=== PATIENT | male | born 1990 | race American Indian/Alaskan Native ===

== ENCOUNTER 2017-01-31 00:32 | Emergency (ER) | payer SELFPAY ==
[2017-01-31 01:18] LABS: Anion Gap 18 mmol/L; BUN/Creatinine Ratio 15.71; Blood Urea Nitrogen 11 mg/dL (9-20); Calcium 9.3 mg/dL (8.4-10.2); Carbon Dioxide 26 mmol/L (22-30); Glucose 88 mg/dL (75-100); Potassium 3.8 mmol/L (3.6-5.0); Sodium 139 mmol/L (137-145)
[2017-01-31 01:19] LABS: Basophils % (Auto) 0.9 % (0.0-1.8); Eosinophils % (Auto) 6.3 % (0.0-4.3); Hematocrit 44.3 % (35.5-45.6); Hemoglobin 14.4 gm/dl (11.8-15.2); Mean Corpuscular HGB Conc 33 % (32-34); Mean Corpuscular Hemoglobin 29 pg (28-32); Mean Corpuscular Volume 90 fl (84-94); Platelet Count 251 K/mm3 (140-440); Red Blood Count 4.93 M/mm3 (3.65-5.03); Red Cell Distribution Width 12.5 % (13.2-15.2); White Blood Count 5.5 K/mm3 (4.5-11.0)
--- NOTE | 2017-01-31 07:56 | Emergency Department Report ---
HPI - General Chief Complaint: Syncope Time Seen by Provider: 01/31/17 07:48 - HPI HPI: This is a 26-year-old Afro[place] male who presents to the emergency department from work, via EMS, after he passed out around midnight. He says he was just sitting there on a break with his friend but the friend was showing him some gory pictures of a skateboarding accident and all of a sudden the patient became queasy and things felt hazy. The patient then laid down with his head on a table and appeared to have passed out. While the patient was not necessarily unconscious the entire time, coworker said that he was out of it for about 30 minutes. Patient is currently awake and alert and says he feels back at baseline. He denies any past medical history. He does not have a primary care doctor. No recent travel or sick contacts at home. He denies any alcohol or drug abuse or tobacco abuse. He did not take anything and was not given anything for his symptoms prior to presentation. ED Past Medical Hx - Past Medical History Previous Medical History?: No - Surgical History Past Surgical History?: No - Social History Smoking Status: Never Smoker Substance Use Type: None - Medications Home Medications: Home Medications Medication Instructions Recorded Confirmed Last Taken Type No Known Home Medications [No 01/31/17 01/31/17 Unknown History Reported Home Medications] ED Review of Systems ROS: Stated complaint: PASS OUT Other details as noted in HPI Comment: All other systems reviewed and negative Constitutional: denies: chills, fever Eyes: denies: eye pain, eye discharge, vision change ENT: denies: ear pain, throat pain Respiratory: denies: cough, shortness of breath, wheezing Cardiovascular: syncope. denies: palpitations Gastrointestinal: denies: abdominal pain, nausea, diarrhea Genitourinary: denies: urgency, dysuria Musculoskeletal: denies: back pain, joint swelling, arthralgia Skin: denies: rash, lesions Neurological: denies: headache, numbness Physical Exam - Physical Exam Vital Signs: Vital Signs 01/31/17 00:37 Temperature 97.8 F Pulse Rate 60 Respiratory 18 Rate Blood Pressure 123/76 O2 Sat by Pulse 100 Oximetry Physical Exam: GENERAL: The patient is well-developed well-nourished. HEENT: Normocephalic. Atraumatic. Extraocular motions are intact. Patient has moist mucous membranes. Pupils equal reactive to light bilaterally. No nystagmus. NECK: Supple. Trachea is midline. CHEST/LUNGS: Clear to auscultation. There is no respiratory distress noted. HEART/CARDIOVASCULAR: Regular. There is no tachycardia. There is no gallop rub or murmur. ABDOMEN: Abdomen is soft, nontender. Patient has normal bowel sounds. There is no abdominal distention. SKIN: There is no rash. There is no edema. There is no diaphoresis. NEURO: The patient is awake, alert, and oriented. The patient is cooperative. The patient has no focal neurologic deficits. The patient has normal speech and gait. Cranial nerves II through XII grossly intact. MUSCULOSKELETAL: There is no tenderness or deformity. There is no limitation range of motion. There is no evidence of acute injury. Muscle strength 5 out of 5 for upper and lower extremity bilaterally. Cap refill less than 2 seconds. ED Course Vital Signs 01/31/17 00:37 Temperature 97.8 F Pulse Rate 60 Respiratory 18 Rate Blood Pressure 123/76 O2 Sat by Pulse 100 Oximetry ED Medical Decision Making - Lab Data Result diagrams: 01/31/17 00:50 01/31/17 00:50 - EKG Data -: EKG Interpreted by Sd EKG shows normal: sinus rhythm, axis, intervals, QRS complexes, ST-T waves Rate: bradycardia (57 bpm) - EKG Data When compared to previous EKG there are: previous EKG unavailable Interpretation: normal EKG ( with mild bradycardia) - Medical Decision Making 26-year-old male presents after having a syncopal episode at work. It allegedly was prolonged loss of consciousness but patient may not have been unconscious as much as he was days. Differential included syncope versus seizure versus alcohol intoxication. EKG does not show any signs of ST elevation VT, ischemia or dysrhythmia. Labs are unremarkable including negative blood alcohol level. There is no signs of infection, electrolyte abnormalities, renal insufficiency, glucose abnormalities in the patient has normal thyroid function. Vital signs stable throughout his ED course. The patient was reevaluated multiple times for multiple hours and has not had any further syncopal episodes or any signs of neurological deficits. He has no focal, motor or sensory deficits and his cranial nerves are intact. He appears safe for discharge home at this time. He has been given referrals for primary care. He will return to the ER with any worsening of symptoms or any acute distress. - Differential Diagnosis syncope, vasovagal, orthostatic hypotension, substance abuse, seizure Critical Care Time: No Critical care attestation.: If time is entered above; I have spent that time in minutes in the direct care of this critically ill patient, excluding procedure time. ED Disposition Clinical Impression: Syncope Qualifiers: Syncope type: unspecified Qualified Code(s): R55 - Syncope and collapse Disposition: DISCHARGED TO HOME OR SELFCARE Is pt being admited?: No Condition: Stable Instructions: Syncope (ED) Additional Instructions: Please follow-up with a primary care doctor in the next few days. Return to the emergency department with any further episodes of passing out, any development of chest pain, or any acute distress. Referrals: PRIMARY CARE, [Primary Care Provider] - 3-5 Days KENNETH ALVAREZ MD, PHD [Staff Physician] - 3-5 Days [facility] [Outside] - 3-5 Days Time of Disposition: 11:27
[2017-01-31 11:38] VITALS: BP 126/70
== END 2017-01-31 11:37 | disposition home or self-care (01) ==
LOC: ED 00:32
DX: R55 Syncope and collapse (principal)
CPT/HCPCS: 36415; 80048; 84443; 84484; 85025; 93005; 93010; 99283; G0480; 80320